=== PATIENT | female | born 1990 | race Caucasian/White ===

== ENCOUNTER 2020-05-29 14:26 | Emergency (ER) | payer OTHER ==
[2020-05-29] MEDS ORDERED: Rhogam IMMUNE GLOBULIN 1,500 UNIT/1 ML IM ONE (14:54)
[2020-05-29 14:55] VITALS: BP 124/77; PULSE 72; RESP 18; TEMP 98.5
--- NOTE | 2020-05-29 15:08 | ED ---
Female Urogenital HPI - General Chief complaint: Vaginal Bleeding Stated complaint: Poss Miscarriage Time Seen by Provider: 05/29/20 14:32 Source: patient Mode of arrival: ambulatory Limitations: no limitations - History of Present Illness Initial comments: Patient is a 29-year-old female presenting to emergency Department with complaints of vaginal bleeding and lower abdominal cramping that started yesterday. Patient believes she is approximately 6 weeks . She did have an ultrasound performed a couple weeks ago for dates. Her LABOR RELATIONS ANALYST is Dr. Garcia. Patient states the bleeding has been light, she does feel like she has passed a few small clots. She states the cramping was a little bit worse yesterday, less today. She is only having to wear a liner so the bleeding is not heavy. This is patient's first . She denies any fever or chills, no dysuria, no nausea or vomiting or diarrhea. She denies any chest pain or shortness of breath. She is no further complaints. - Related Data Allergies Allergy/AdvReac Type Severity Reaction Status Date / Time amoxicillin Allergy Rash/Hives Verified 05/29/20 14:32 cetirizine [From Zyrtec] Allergy Rash/Hives Verified 05/29/20 14:32 Penicillins Allergy Rash/Hives Verified 05/29/20 14:32 Sulfa (Sulfonamide Allergy Rash/Hives Verified 05/29/20 14:32 Antibiotics) Review of Systems ROS Statement: Those systems with pertinent positive or pertinent negative responses have been documented in the HPI. ROS Other: All systems not noted in ROS Statement are negative. Past Medical History Past Medical History: No Reported History History of Any Multi-Drug Resistant Organisms: None Reported Additional Past Surgical History / Comment(s): Brain sx Smoking Status: Never smoker Past Alcohol Use History: None Reported Past Drug Use History: None Reported General Exam - General Exam Comments Initial Comments: GENERAL: Patient is well-developed and well-nourished. Patient is nontoxic and in no acute distress. HEAD: Atraumatic, normocephalic. EYES: Pupils equal round and reactive to light, extraocular movements intact, sclera anicteric, conjunctiva are normal. Eyelids were unremarkable. ENT: TMs normal, nares patent, oropharynx clear without exudates. Moist mucous membranes. NECK: Normal range of motion, supple without lymphadenopathy or JVD. LUNGS: Unlabored respirations. Breath sounds clear to auscultation bilaterally and equal. No wheezes rales or rhonchi. HEART: Regular rate and rhythm without murmurs, rubs or gallops. ABDOMEN: Very mild lower abdominal discomfort, no other areas of pain. Soft, normoactive bowel sounds. No guarding, no rebound. No masses appreciated. MUSCULOSKELETAL: Normal extremities with adequate strength and normal range of motion, no pitting or edema. No clubbing or cyanosis. NEUROLOGICAL: Patient is alert and oriented x 3. Motor and sensory are also intact. Cranial nerves II through XII grossly intact. Symmetrical smile. Normal speech, normal gait. PSYCH: Normal mood, normal affect. SKIN: Warm, Dry, normal turgor, no rashes or lesions noted. Limitations: no limitations External exam: Present: normal external exam Speculum exam: Present: vaginal bleeding (Cervical os appears to be closed, there was a few small blood clots visible, no active bleeding/hemorrhaging). Absent: foreign body By manual exam: Present: normal by manual exam Course Vital Signs 05/29/20 14:29 Temperature 98.5 F Pulse Rate 72 Respiratory 18 Rate Blood Pressure 124/77 O2 Sat by Pulse 99 Oximetry Medical Decision Making - Medical Decision Making Patient is a 29-year-old female, proximally 6 weeks , presenting for vaginal bleeding and cramping that started yesterday. Bleeding is light. This is patient's first , LABOR RELATIONS ANALYST is Dr. Munoz. Labs are unremarkable, hCG Quant is 5600. Ultrasound today shows a single live IUP measuring 6 weeks, 1 day. Heart rate is 1:15, this does appear low but could be due to early gestational age. No complicating process seen at this time. Patient's blood type is O-, Rhogam was given today. Urine is normal, no signs of bacteria. She will have hCG retested in 48 hours. She does have an appointment in 2 days with her LABOR RELATIONS ANALYST. Patient is stable for discharge. Patient is in agreement with this plan of care. Return parameters were discussed with the patient and they verbalized understanding. Case discussed with Dr. Marquez. - Lab Data Result diagrams: 05/29/20 15:02 05/29/20 15:02 Lab Results 05/29/20 05/29/20 05/29/20 Range/Units 15:02 15:02 15:02 WBC 7.3 (3.8-10.6) k/uL RBC 4.43 (3.80-5.40) m/uL Hgb 13.6 (11.4-16.0) gm/dL Hct 39.4 (34.0-46.0) % MCV 88.8 (80.0-100.0) fL MCH 30.6 (25.0-35.0) pg MCHC 34.5 (31.0-37.0) g/dL RDW 12.2 (11.5-15.5) % Plt Count 212 (150-450) k/uL MPV 9.1 Neutrophils % 55 % Lymphocytes % 29 % Monocytes % 4 % Eosinophils % 9 % Basophils % 1 % Neutrophils # 4.0 (1.3-7.7) k/uL Lymphocytes # 2.2 (1.0-4.8) k/uL Monocytes # 0.3 (0-1.0) k/uL Eosinophils # 0.7 (0-0.7) k/uL Basophils # 0.1 (0-0.2) k/uL Sodium 138 (137-145) mmol/L Potassium 4.1 (3.5-5.1) mmol/L Chloride 102 (98-107) mmol/L Carbon Dioxide 26 (22-30) mmol/L Anion Gap 10 mmol/L BUN 7 (7-17) mg/dL Creatinine 0.56 (0.52-1.04) mg/dL Est GFR (CKD-EPI)AfAm >90 (>60 ml/min/1.73 sqM) Est GFR (CKD-EPI)NonAf >90 (>60 ml/min/1.73 sqM) Glucose 91 (74-99) mg/dL Calcium 9.3 (8.4-10.2) mg/dL Total Bilirubin 0.5 (0.2-1.3) mg/dL AST 25 (14-36) U/L ALT 16 (4-34) U/L Alkaline Phosphatase 41 (38-126) U/L Total Protein 7.2 (6.3-8.2) g/dL Albumin 4.3 (3.5-5.0) g/dL HCG, Quant 5606.2 mIU/mL Urine Color Light Yellow Urine Appearance Clear (Clear) Urine pH 7.0 (5.0-8.0) Ur Specific [place] 1.016 (1.001-1.035) Urine Protein Negative (Negative) Urine Glucose (UA) Negative (Negative) Urine Ketones Negative (Negative) Urine Blood Negative (Negative) Urine Nitrite Negative (Negative) Urine Bilirubin Negative (Negative) Urine Urobilinogen <2.0 (<2.0) mg/dL Ur Leukocyte Esterase Negative (Negative) Blood Type Blood Type Confirm Blood Type Recheck Bld Type Recheck Status Antibody Screen 05/29/20 05/29/20 Range/Units 15:02 15:05 WBC (3.8-10.6) k/uL RBC (3.80-5.40) m/uL Hgb (11.4-16.0) gm/dL Hct (34.0-46.0) % MCV (80.0-100.0) fL MCH (25.0-35.0) pg MCHC (31.0-37.0) g/dL RDW (11.5-15.5) % Plt Count (150-450) k/uL MPV Neutrophils % % Lymphocytes % % Monocytes % % Eosinophils % % Basophils % % Neutrophils # (1.3-7.7) k/uL Lymphocytes # (1.0-4.8) k/uL Monocytes # (0-1.0) k/uL Eosinophils # (0-0.7) k/uL Basophils # (0-0.2) k/uL Sodium (137-145) mmol/L Potassium (3.5-5.1) mmol/L Chloride (98-107) mmol/L Carbon Dioxide (22-30) mmol/L Anion Gap mmol/L BUN (7-17) mg/dL Creatinine (0.52-1.04) mg/dL Est GFR (CKD-EPI)AfAm (>60 ml/min/1.73 sqM) Est GFR (CKD-EPI)NonAf (>60 ml/min/1.73 sqM) Glucose (74-99) mg/dL Calcium (8.4-10.2) mg/dL Total Bilirubin (0.2-1.3) mg/dL AST (14-36) U/L ALT (4-34) U/L Alkaline Phosphatase (38-126) U/L Total Protein (6.3-8.2) g/dL Albumin (3.5-5.0) g/dL HCG, Quant mIU/mL Urine Color Urine Appearance (Clear) Urine pH (5.0-8.0) Ur Specific [place] (1.001-1.035) Urine Protein (Negative) Urine Glucose (UA) (Negative) Urine Ketones (Negative) Urine Blood (Negative) Urine Nitrite (Negative) Urine Bilirubin (Negative) Urine Urobilinogen (<2.0) mg/dL Ur Leukocyte Esterase (Negative) Blood Type O Negative Blood Type Confirm O Negative Blood Type Recheck No Previous Record Bld Type Recheck Status CABO Indicated Antibody Screen NEGATIVE Disposition Clinical Impression: Vaginal bleeding during Disposition: HOME SELF-CARE Condition: Stable Instructions (If sedation given, give patient instructions): Threatened Miscarriage (ED) Additional Instructions: Please return to the Emergency Department if symptoms worsen or any other concerns. Repeat beta hCG levels in 48 hours. Follow up with your LABOR RELATIONS ANALYST as discussed. Is patient prescribed a controlled substance at d/c from ED?: No Referrals: Nonstaff,Physician [Primary Care Provider] - 1-2 days
[2020-05-29 15:20] LABS: Basophils # (A) 0.1 k/uL (0-0.2); Basophils % (A) 1 %; Eosinophils # (A) 0.7 k/uL (0-0.7); Eosinophils % (A) 9 %; HCT 39.4 % (34.0-46.0); HGB 13.6 gm/dL (11.4-16.0); Lymphocytes # (A) 2.2 k/uL (1.0-4.8); Lymphocytes % (A) 29 %; MCH 30.6 pg (25.0-35.0); MCHC 34.5 g/dL (31.0-37.0); MCV 88.8 fL (80.0-100.0); Mean Platelet Volume 9.1; Monocytes # (A) 0.3 k/uL (0-1.0); Monocytes % (A) 4 %; Neutrophils % (A) 55 %; Platelet Count 212 k/uL (150-450); RBC 4.43 m/uL (3.80-5.40); RDW 12.2 % (11.5-15.5); WBC 7.3 k/uL (3.8-10.6)
[2020-05-29 15:29] LABS: ALT 16 U/L (4-34); AST 25 U/L (14-36); African American GFR (CKD) >90 (>60 ml/min/1.73 sqM); Albumin 4.3 g/dL (3.5-5.0); Alkaline Phosphatase 41 U/L (38-126); Anion Gap 10 mmol/L; Blood Urea Nitrogen 7 mg/dL (7-17); Calcium 9.3 mg/dL (8.4-10.2); Carbon Dioxide 26 mmol/L (22-30); Chloride 102 mmol/L (98-107); Glucose 91 mg/dL (74-99); Non-African American GFR(CKD) >90 (>60 ml/min/1.73 sqM); Potassium 4.1 mmol/L (3.5-5.1); Sodium 138 mmol/L (137-145); Total Bilirubin 0.5 mg/dL (0.2-1.3); Total Protein 7.2 g/dL (6.3-8.2)
[2020-05-29 15:46] LABS: HCG,Quantitative Serum 5606.2 mIU/mL
--- NOTE | 2020-05-29 16:03 | US ---
EXAMINATION TYPE: Transabdominal DATE OF EXAM: 05/29/2020 3:47 PM COMPARISON: NONE CLINICAL HISTORY: cramping, bleeding since yesterday. Spotting since yesterday. EXAM PERFORMED: Transvaginal (TV) and Transabdominal (TA) EXAM MEASUREMENTS: GESTATIONAL AGE / DATING Dates by LMP: (8 weeks/2 days) EDC: 01/06/2021 Dates by Current Scan for: (6 weeks/1 days) EDC: 01/21/2021 MATERNAL ANATOMY Uterus: 7.3 x 4.4 x 3.6 cm Right Ovary: 2.8 x 1.6 x 1.4 cm Left Ovary: 2.8 x 1.4 x 1.4 cm Post CDS / Adnexa: no free fluid, peristalsing fluid filled bowel seen Presence of free fluid: no Presence of corpus luteal cyst: no Presence of subchorionic bleed: no GESTATION / SURVEY CRL: 0.4 cm (6 weeks/1 days) MSD: seen, not measured Yolk Sac (normal less than 6mm): 1.1 mm Heart Rate: 115 bpm Rhythm: Normal IUP: Viable IUP Date of LMP: 04/01/2020, G1 Beta HcG (if available): Not available at this time Single live IUP measuring 6 weeks 1 day. Heart rate appears low, but could be due to early gestation al age. IMPRESSION: The ultrasound gestational age is 6 weeks and 1 day. No complicating process seen.
[2020-05-29 16:21] LABS: Appearance,Urine Clear (Clear); Bilirubin,Urine Negative (Negative); Blood,Urine Negative (Negative); Color,Urine Light Yellow; Glucose,Urine (UA) Negative (Negative); Ketones,Urine Negative (Negative); Leukocyte Esterase,Urine Negative (Negative); Nitrite,Urine Negative (Negative); Protein,Urine Negative (Negative); Specific Gravity,Urine 1.016 (1.001-1.035); Urobilinogen,Urine <2.0 mg/dL (<2.0)
== END 2020-05-29 16:39 | disposition home or self-care (01) ==
LOC: EC 14:26
DX: O46.91 Antepartum hemorrhage, unspecified, first trimester (principal); Z3A.08 8 weeks gestation of pregnancy; Z88.0 Allergy status to penicillin; Z88.2 Allergy status to sulfonamides; Z88.8 Allergy status to other drugs, medicaments and biological substances
CPT/HCPCS: 99284; 36415; 86900; 86901; 80053; 85025; 86850; 81003; 84702; 76801; 76817; J2791

== ENCOUNTER 2021-01-05 08:10 | Emergency (ER) | payer OTHER ==
--- NOTE | 2021-01-05 08:24 | ED ---
Fall HPI - General Chief Complaint: Fall Stated Complaint: IHS-slip & fall Time Seen by Provider: 01/05/21 08:14 Source: patient, RN notes reviewed Mode of arrival: ambulatory Limitations: no limitations - History of Present Illness Initial Comments: This a 30-year-old female presents emergency Department with chief complaint of slip and fall. Patient states that she was at work in which she states the nausea she was leaking she slipped on the concrete falling but has no complaints. Denies any head injury no loss conscious denies neck, back pain, hip pain, extremity pain she does admit that she is 25 weeks states that she didn't bathroom after the fall she's had no vaginal bleeding or vaginal discharge. Patient states that she is A0 and seen Dr. Garcia. Patient has no current abdominal pain. - Related Data Allergies Allergy/AdvReac Type Severity Reaction Status Date / Time amoxicillin Allergy Rash/Hives Verified 01/05/21 08:11 cetirizine [From Zyrtec] Allergy Rash/Hives Verified 01/05/21 08:11 Penicillins Allergy Rash/Hives Verified 01/05/21 08:11 Sulfa (Sulfonamide Allergy Rash/Hives Verified 01/05/21 08:11 Antibiotics) Review of Systems ROS Statement: Those systems with pertinent positive or pertinent negative responses have been documented in the HPI. ROS Other: All systems not noted in ROS Statement are negative. Past Medical History Past Medical History: No Reported History History of Any Multi-Drug Resistant Organisms: None Reported Additional Past Surgical History / Comment(s): Brain sx Smoking Status: Never smoker Past Alcohol Use History: None Reported Past Drug Use History: None Reported General Exam Limitations: no limitations General appearance: alert, in no apparent distress Head exam: Present: atraumatic, normocephalic, normal inspection Eye exam: Present: normal appearance, PERRL, EOMI. Absent: scleral icterus, conjunctival injection, periorbital swelling ENT exam: Present: normal exam, normal oropharynx, mucous membranes moist Neck exam: Present: normal inspection, full ROM. Absent: tenderness, meningismus, lymphadenopathy Respiratory exam: Present: normal lung sounds bilaterally. Absent: respiratory distress, wheezes, rales, rhonchi, stridor Cardiovascular Exam: Present: regular rate, normal rhythm, normal heart sounds. Absent: systolic murmur, diastolic murmur, rubs, gallop, clicks GI/Abdominal exam: Present: soft, normal bowel sounds, other ( heart tone 153). Absent: distended, tenderness, guarding, rebound, rigid Back exam: Present: full ROM. Absent: tenderness, CVA tenderness (R), CVA tenderness (L), paraspinal tenderness, vertebral tenderness Neurological exam: Present: alert, oriented X3, CN II-XII intact, reflexes normal. Absent: motor sensory deficit Skin exam: Present: warm, dry, intact, normal color. Absent: rash Course Vital Signs 01/05/21 01/05/21 08:11 09:25 Temperature 98.3 F 98.2 F Pulse Rate 84 83 Respiratory 18 17 Rate Blood Pressure 109/72 101/55 O2 Sat by Pulse 100 97 Oximetry Disposition Clinical Impression: Fall from slipping Disposition: HOME SELF-CARE Condition: Stable Additional Instructions: Please return to the Emergency Department if symptoms worsen or any other concerns. Is patient prescribed a controlled substance at d/c from ED?: No Referrals: Montserrat Cedeño DO [Primary Care Provider] - 1-2 days Time of Disposition: 08:24
[2021-01-05 09:26] VITALS: BP 101/55; PULSE 83; RESP 17; TEMP 98.2
== END 2021-01-05 09:26 | disposition home or self-care (01) ==
LOC: EC 08:10
DX: Z04.3 Encounter for examination and observation following other accident (principal); W01.0XXA Fall on same level from slipping, tripping and stumbling without subsequent striking against object, initial encounter
CPT/HCPCS: 99283

== ENCOUNTER 2022-09-12 06:00 | Inpatient (IN) | payer BC, OTHER ==
[2022-09-12] MEDS ORDERED: miSOPROStoL 200 MCG TAB PO PRN (06:27)
[2022-09-12] MEDS ORDERED: CARBOPROST TROMETHAMINE 250 MCG/ML 1 ML AMP IM PRN (06:27)
[2022-09-12] MEDS ORDERED: TERBUTALINE 1 MG/ML VIAL SQ PRN (06:27)
[2022-09-12] MEDS ORDERED: LIDOCAINE 0.5% (PF) 5 MG/ML (50 ML SDV) SQ PRN (06:27)
[2022-09-12] MEDS ORDERED: METHYLERGONOVINE 0.2 MG/ML 1 ML AMP IM PRN (06:27)
[2022-09-12] MEDS ORDERED: OXYTOCIN 10 UNIT/ML 1 ML VIAL IM PRN (06:27)
[2022-09-12] MEDS ORDERED: TRANEXAMIC ACID IN NACL,ISO-OS 1,000 MG in EMPTY BAG 1 BAG IV PRN (06:27)
[2022-09-12] MEDS ORDERED: OXYTOCIN 30 UNITS/500 ML NS 30 UNIT in SALINE 1 500ML.BAG IV SCH ×2 (06:30→19:00)
[2022-09-12 06:49] LABS: Basophils % (A) 1 %; Eosinophils # (A) 0.4 k/uL (0-0.7); Eosinophils % (A) 5 %; HCT 30.7 % (34.0-46.0); HGB 10.3 gm/dL (11.4-16.0); Lymphocytes # (A) 2.1 k/uL (1.0-4.8); Lymphocytes % (A) 29 %; MCH 28.5 pg (25.0-35.0); MCHC 33.5 g/dL (31.0-37.0); MCV 85.1 fL (80.0-100.0); Mean Platelet Volume 13.7; Monocytes # (A) 0.4 k/uL (0-1.0); Monocytes % (A) 5 %; Neutrophils # (A) 4.2 k/uL (1.3-7.7); Neutrophils % (A) 57 %; Platelet Count 141 k/uL (150-450); RBC 3.61 m/uL (3.80-5.40); RDW 14.2 % (11.5-15.5); WBC 7.3 k/uL (3.8-10.6)
[2022-09-12] MEDS: LACTATED RINGERS 1,000 ML IV SCH ×3 (06:50→16:28)
[2022-09-12 09:48] LABS: Basophils % (A) 1 %; Eosinophils # (A) 0.4 k/uL (0-0.7); Eosinophils % (A) 4 %; HCT 32.1 % (34.0-46.0); HGB 10.8 gm/dL (11.4-16.0); Lymphocytes # (A) 1.9 k/uL (1.0-4.8); Lymphocytes % (A) 23 %; MCH 28.9 pg (25.0-35.0); MCHC 33.6 g/dL (31.0-37.0); Mean Platelet Volume 15.8; Monocytes # (A) 0.4 k/uL (0-1.0); Monocytes % (A) 5 %; Neutrophils # (A) 5.4 k/uL (1.3-7.7); Neutrophils % (A) 64 %; Platelet Count 134 k/uL (150-450); RBC 3.73 m/uL (3.80-5.40); RDW 14.2 % (11.5-15.5); WBC 8.4 k/uL (3.8-10.6)
[2022-09-12 10:19] LABS: ALT 16 U/L (4-34); AST 30 U/L (14-36); African American GFR (CKD) >90 (>60 ml/min/1.73 sqM); Blood Urea Nitrogen 9 mg/dL (7-17); LDH 215 U/L (120-246); Non-African American GFR(CKD) >90 (>60 ml/min/1.73 sqM); Uric Acid 5.1 mg/dL (3.7-7.4)
[2022-09-12 11:17] LABS: Large Platelets Present
[2022-09-12 11:47] LABS: Appearance,Urine Turbid (Clear); Bacteria,Urine Many /hpf; Bilirubin,Urine Negative (Negative); Blood,Urine Small (Negative); Color,Urine Yellow; Glucose,Urine (UA) Negative (Negative); Ketones,Urine Negative (Negative); Leukocyte Esterase,Urine Large (Negative); Mucus,Urine Many /hpf; Nitrite,Urine Negative (Negative); Protein,Urine 2+ (Negative); RBC,Urine 108 /hpf (0-5); Specific Gravity,Urine 1.028 (1.001-1.035); Squamous Epithelial Cell,Urine 87 /hpf (0-4); WBC,Urine >182 /hpf (0-5)
[2022-09-12] MEDS ORDERED: fentaNYL (PF) 50 MCG/ML 5 ML AMP ONE (12:34)
[2022-09-12] MEDS ORDERED: ROPIVACAINE 5 MG/ML 20 ML AMPULE ONE (12:34)
[2022-09-12] MEDS ORDERED: SODIUM CHLORIDE 0.9% 100 ML BAG ONE (12:34)
[2022-09-12] MEDS ORDERED: ZOLPIDEM 5 MG TAB PO PRN (18:52)
[2022-09-12] MEDS ORDERED: LANOLIN CREAM 5 GM TUBE TOPICAL PRN (18:52)
[2022-09-12] MEDS ORDERED: BENZOCAINE/MENTHOL SPRAY 1 GM/SPRAY AEROSOL TOPICAL PRN (18:52)
[2022-09-12] MEDS ORDERED: diphenhydrAMINE 50 MG CAP PO PRN (18:52)
[2022-09-12] MEDS ORDERED: SIMETHICONE 80 MG CHEWABLE PO PRN (18:52)
[2022-09-12] MEDS ORDERED: diphenhydrAMINE 25 MG CAP PO PRN (18:52)
[2022-09-12] MEDS ORDERED: diphenhydrAMINE 50 MG/ML 1 ML VIAL IVP PRN ×2 (18:52)
[2022-09-12] MEDS ORDERED: HYDROCORTISONE 2.5% RECTAL CREAM 30 GM TUBE RECTAL PRN (18:52)
--- NOTE | 2022-09-12 18:58 | P.PROBDLV ---
Vaginal Delivery Note - . Vaginal Delivery Note: this is a 31-year-old that presented to labor and delivery at 39-2/7 weeks for scheduled induction of labor. Patient had a prior history of retained placenta, hemorrhage after her first delivery. Patient has been receiving routine care with myself which has been essentially uncomplicated. Given patient's prior delivery and questionable placenta accreta patient had an MFM consult. No further recommendations were made per MFM. MFM consult on chart. Patient was admitted to labor and delivery and Pitocin induction of labor was begun. Patient underwent amniotomy and clear fluid was obtained. Patient progressed through labor eventually becoming uncomfortable requesting epidural placement. Epidural was placed without difficulty by the anesthesia department. Patient made slow progress for complete. Once patient was deemed to be completely dilated she was placed in a modified lithotomy position and began pushing. With excellent maternal effort she brought the baby down to a presentation. With additional pushes the head followed by the anterior/posterior shoulder and body were delivered. Spontaneous cry was noted at . After two-minute delayed the umbilical cord was doubly clamped and cut and the was handed to the maternal abdomen. Cord blood was then taken.The placenta was delivered spontaneously intact with three-vessel cord being noted. The placenta was inspected and noted to be completely intact with no missing codelyones. uterus is noted be firm and below the umbilicus. On inspection the patient's vaginal vault a first-degree perineal laceration was appreciated and repaired with a single box stitch of 4-0 chromic. all counts were noted be correct 2 at the delivery. Estimated blood loss 100 mL. Patient and infant tolerated delivery well and are resting comfortably.
--- NOTE | 2022-09-12 18:59 | P.HPOB ---
History of Present Illness H&P Date: 09/12/22 Chief Complaint: IUP @ 39 2/7 weeks This is a 31 yo at 39 2/7 weeks that presents for induction of labor. She has been receiving routine care with myself and has been essentially uncomplicated. 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 Patient did see maternal medicine in the beginning the giving this prior history. Workup with maternal medicine was negative. Consult on record. This morning patient notes good movement, denies contractions vaginal bleeding or loss of fluid. On bloodwork this patient has a blood type of O-, rubella status immune, hepatitis B surface engine negative, HIV negative, RPR is nonreactive, group beta strep cultures negative. Review of Systems Constitutional: Denies chills, Denies fatigue, Denies fever Ears, nose, mouth and throat: Denies headache Cardiovascular: Denies leg edema Respiratory: Denies dyspnea Gastrointestinal: Denies constipation, Denies diarrhea, Denies nausea, Denies vomiting Genitourinary: Reports Past Medical History Past Medical History: No Reported History, GERD/Reflux Additional Past Medical History / Comment(s): placenta acreda, PPH, and blood transfusion with previous pregancy. History of Any Multi-Drug Resistant Organisms: None Reported Additional Past Surgical History / Comment(s): Brain sx Past Anesthesia/Blood Transfusion Reactions: No Reported Reaction Past Psychological History: Anxiety, Depression Smoking Status: Never smoker Past Alcohol Use History: None Reported Past Drug Use History: None Reported - Past Family History Father History Unknown: Yes Family Medical History: Congestive Heart Failure (CHF), Coronary Artery Disease (CAD), Diabetes Mellitus, Hypertension Medications and Allergies Home Medications Medication Instructions Recorded Confirmed Type Aspirin [Adult Low Dose Aspirin EC] 1 tab PO DAILY 09/12/22 09/12/22 History Loratadine [Claritin] 1 tab PO DAILY 09/12/22 09/12/22 History Omeprazole [PriLOSEC] 1 tab PO DAILY 09/12/22 09/12/22 History Vit No.179/Iron/Folic 1 tab PO DAILY 09/12/22 09/12/22 History [ Tablet] Allergies Allergy/AdvReac Type Severity Reaction Status Date / Time amoxicillin Allergy Rash/Hives Verified 01/05/21 08:11 cetirizine [From Zyrtec] Allergy Rash/Hives Verified 01/05/21 08:11 Penicillins Allergy Rash/Hives Verified 01/05/21 08:11 Sulfa (Sulfonamide Allergy Rash/Hives Verified 01/05/21 08:11 Antibiotics) Exam Osteopathic Statement: *. No significant issues noted on an osteopathic structural exam other than those noted in the History and Physical/Consult. Vital Signs Temp Pulse Resp BP Pulse Ox 09/12/22 06:23 98.1 F 92 18 138/94 98 Intake and Output 09/11/22 09/12/22 09/12/22 22:59 06:59 14:59 Other: Weight 74.843 kg Targeted physical exam is performed in this date and bonding supervisor a well-nourished well-developed female in no acute distress, breathing is noted nonlabored, heart has a regular rate and rhythm, abdomen is gravid, on heart tones are noted to be category 1 and she is pat every 3 minutes. On cervical exam she is 2-3/50/-2 station amniotomy is performed and clear fluid was obtained. Results Result Diagrams: 09/12/22 09:35 09/12/22 09:35 Abnormal Lab Results - Last 24 Hours (Table) 09/12/22 Range/Units 06:32 RBC 3.61 L (3.80-5.40) m/uL Hgb 10.3 L (11.4-16.0) gm/dL Hct 30.7 L (34.0-46.0) % Plt Count 141 L (150-450) k/uL Assessment and Plan (1) Term Current Visit: Yes Status: Acute Code(s): Z34.90 - ENCNTR FOR SUPRVSN OF NORMAL , UNSP, UNSP TRIMESTER SNOMED Code(s): 39774729 Plan: 31-year-old at 39-2/7 weeks is admitted to labor and delivery for induction of labor. Patient is admitted and Pitocin induction of labor is begun per hospital protocol. Amniotomy is performed and clear fluid was obtained. Options for analgesia are discussed including Stadol, nitrous, epidural. Patient will consider. Anticipate spontaneous vaginal delivery later today.
[2022-09-12 20:01] VITALS: RESP 16
[2022-09-12] MEDS: IBUPROFEN 600 MG TAB PO SCH (20:08)
[2022-09-12] MEDS: SENNOSIDES-DOCUSATE SODIUM 1 EACH TAB PO SCH (20:09)
[2022-09-13] MEDS: IBUPROFEN 600 MG TAB PO SCH ×3 (02:17→17:04)
[2022-09-13] MEDS ORDERED: Rhogam IMMUNE GLOBULIN 1,500 UNIT/1 ML IM ONE (05:05)
[2022-09-13 05:48] LABS: Basophils % (A) 0 %; Eosinophils # (A) 0.4 k/uL (0-0.7); Eosinophils % (A) 3 %; HCT 29.5 % (34.0-46.0); HGB 9.6 gm/dL (11.4-16.0); Lymphocytes # (A) 2.5 k/uL (1.0-4.8); Lymphocytes % (A) 23 %; MCH 27.7 pg (25.0-35.0); MCHC 32.7 g/dL (31.0-37.0); Monocytes # (A) 0.4 k/uL (0-1.0); Monocytes % (A) 4 %; Neutrophils # (A) 7.2 k/uL (1.3-7.7); Neutrophils % (A) 67 %; Platelet Count 113 k/uL (150-450); RBC 3.48 m/uL (3.80-5.40); RDW 14.6 % (11.5-15.5); WBC 10.8 k/uL (3.8-10.6)
[2022-09-13] MEDS: ACETAMINOPHEN TAB 325 MG TAB PO PRN ×2 (07:54→17:02)
[2022-09-13] MEDS: SENNOSIDES-DOCUSATE SODIUM 1 EACH TAB PO SCH ×2 (07:55→17:02)
--- NOTE | 2022-09-13 08:48 | P.PNOBGVD ---
Subjective - Subjective Principal diagnosis: day #1 Interval history: Patient is doing well . She is ambulating and voiding without difficulty. She states her lochia is moderate, she is breast-feeding without difficulty. She denies concerns. Patient reports: Reports appetite normal, Reports voiding normally, Reports pain well controlled, Reports ambulating normally : doing well, nursing well Objective - Latest Vital Signs Latest vital signs: Vital Signs Temp Pulse Resp BP Pulse Ox 09/13/22 07:46 98 F 72 16 132/78 09/13/22 04:00 97.8 F 72 16 152/90 100 09/13/22 00:00 96.4 F L 74 16 131/74 09/12/22 20:51 68 16 140/85 09/12/22 20:21 75 16 149/93 09/12/22 19:51 65 16 144/88 09/12/22 19:36 75 16 139/93 09/12/22 19:21 75 16 147/99 09/12/22 19:06 75 16 147/96 09/12/22 18:51 98.4 F 94 18 154/92 Intake and Output 09/12/22 09/13/22 09/13/22 22:59 06:59 14:59 Intake Total 333 Balance 333 Intake: Intake, IV Titration 333 Amount Oxytocin 30 Units/500 ml 333 Ns 30 unit In Saline 1 500ml.bag @ Per Protocol IV .Q0M [facility] Rx#:[id number] Other: # Voids 1 1 - Exam Extremities: Present: normal Abdomen: Present: normal appearance Uterus: Present: normal, firm - Labs Labs: Abnormal Lab Results - Last 24 Hours (Table) 09/12/22 09/12/22 09/12/22 Range/Units 09:35 09:35 11:04 WBC (3.8-10.6) k/uL RBC 3.73 L (3.80-5.40) m/uL Hgb 10.8 L (11.4-16.0) gm/dL Hct 32.1 L (34.0-46.0) % Plt Count 134 L (150-450) k/uL Creatinine 0.51 L (0.52-1.04) mg/dL Urine Appearance Turbid H (Clear) Urine Protein 2+ H (Negative) Urine Blood Small H (Negative) Ur Leukocyte Esterase Large H (Negative) Urine RBC 108 H (0-5) /hpf Urine WBC >182 H (0-5) /hpf Urine WBC Clumps Many H (None) /hpf Ur Squamous Epith Cells 87 H (0-4) /hpf Urine Bacteria Many H (None) /hpf Urine Mucus Many H (None) /hpf 09/13/22 Range/Units 05:35 WBC 10.8 H (3.8-10.6) k/uL RBC 3.48 L (3.80-5.40) m/uL Hgb 9.6 L (11.4-16.0) gm/dL Hct 29.5 L (34.0-46.0) % Plt Count 113 L (150-450) k/uL Creatinine (0.52-1.04) mg/dL Urine Appearance (Clear) Urine Protein (Negative) Urine Blood (Negative) Ur Leukocyte Esterase (Negative) Urine RBC (0-5) /hpf Urine WBC (0-5) /hpf Urine WBC Clumps (None) /hpf Ur Squamous Epith Cells (0-4) /hpf Urine Bacteria (None) /hpf Urine Mucus (None) /hpf Assessment and Plan (1) Term Current Visit: Yes Status: Acute Code(s): Z34.90 - ENCNTR FOR SUPRVSN OF NORMAL , UNSP, UNSP TRIMESTER SNOMED Code(s): 30327537 (2) Status post vaginal delivery Current Visit: Yes Status: Acute Code(s): WLN9199 - SNOMED Code(s): 200016718 Plan: Patient is doing well . She does desire discharge home at 24 hours if is discharged as well. She does desire circumcision prior to discharge. We'll continue routine care today and consider discharge this evening.
[2022-09-13] MEDS ORDERED: PRENATAL VIT-IRON-FOLIC ACID 1 EACH TABLET PO SCH (09:00)
--- NOTE | 2022-09-13 12:58 | P.DS ---
Providers Date of admission: 09/12/22 06:08 Expected date of discharge: 09/13/22 Attending physician: Jennifer Woodward Primary care physician: Stated None - Discharge Diagnosis(es) (1) Term Current Visit: Yes Status: Acute (2) Status post vaginal delivery Current Visit: Yes Status: Acute Hospital Course: This is a 31-year-old G3 now P2 012 that presented to labor and delivery at 39- 2/7 weeks for scheduled induction of labor. Patient had a prior history of a retained placenta questionable accreta and hemorrhage with her first delivery. Patient did see maternal medicine regarding these concerns and prior concerns with care. MFM consult is on chart. No further recommendations were made per MFM. Patient was admitted and Pitocin induction of labor was begun. Patient underwent amniotomy clear fluid was obtained. Patient progressed through labor eventually becoming uncomfortable and did request epidural placement. Epidural was placed without difficulty by the anesthesia department. Patient made progress for complete began pushing and had a normal spontaneous vaginal delivery of a viable male at 1836, weight of 7 lbs. 4 oz. Patient did sustain a first-degree perineal laceration was was repaired with a box stitch of 4-0 chromic. Patient has done well . On this day #1 she is ambulating and voiding without difficulty. She is tolerating a regular diet without nausea or vomiting. She states her pain is well-controlled. She is breast-feeding. She notes her lochia to be minimal to moderate. She would like discharge home at 24 hours. Patient Condition at Discharge: Good Plan - Discharge Summary New Discharge Prescriptions: No Action Omeprazole [PriLOSEC] 1 tab PO DAILY Vit No.179/Iron/Folic [ Tablet] 1 tab PO DAILY Loratadine [Claritin] 1 tab PO DAILY Aspirin [Adult Low Dose Aspirin EC] 1 tab PO DAILY Discharge Medication List Aspirin [Adult Low Dose Aspirin EC] 1 tab PO DAILY 09/12/22 [History] Loratadine [Claritin] 1 tab PO DAILY 09/12/22 [History] Omeprazole [PriLOSEC] 1 tab PO DAILY 09/12/22 [History] Vit No.179/Iron/Folic [ Tablet] 1 tab PO DAILY 09/12/22 [History] Follow up Appointment(s)/Referral(s): Jennifer Woodward DO [Doctor of Osteopathic Medicine] - 1 Week Patient Instructions/Handouts: Vaginal Delivery (GEN), Vaginal Delivery (DC) Activity/Diet/Wound Care/Special Instructions: No tub baths or intercourse until 6 weeks . Patient is counseled on blood pressure concerns given labile blood pressures in labor. Negative preeclampsia labs were noted. Patient is to return to the office for a blood pressure check in 1 week.
[2022-09-13 16:41] VITALS: PULSE 83; TEMP 97.8
[2022-09-13 20:38] VITALS: BP 139/91
== END 2022-09-13 20:40 | disposition home or self-care (01) | DRG 807 ==
LOC: 4FBP 06:08
PROVIDERS: ADMIT Obstetrics & Gynecology Obstetrics; ATTEND Obstetrics & Gynecology Obstetrics
PROC: 10E0XZZ Delivery of Products of Conception, External Approach (ICD-10-PCS; principal; 2022-09-12)
PROC: 0HQ9XZZ Repair Perineum Skin, External Approach (ICD-10-PCS; 2022-09-12)
PROC: 3E033VJ Introduction of Other Hormone into Peripheral Vein, Percutaneous Approach (ICD-10-PCS; 2022-09-12)
PROC: 10907ZC Drainage of Amniotic Fluid, Therapeutic from Products of Conception, Via Natural or Artificial Opening (ICD-10-PCS; 2022-09-12)
DX: O70.0 First degree perineal laceration during delivery (principal); Z37.0 Single live birth; O99.344 Other mental disorders complicating childbirth; F32.A Depression, unspecified; F41.9 Anxiety disorder, unspecified; Z3A.39 39 weeks gestation of pregnancy; Z79.82 Long term (current) use of aspirin; Z88.1 Allergy status to other antibiotic agents; Z88.0 Allergy status to penicillin; Z88.5 Allergy status to narcotic agent; Z88.8 Allergy status to other drugs, medicaments and biological substances; Z88.2 Allergy status to sulfonamides; Z87.59 Personal history of other complications of pregnancy, childbirth and the puerperium
CPT/HCPCS: 81001; 82565; 83615; 84450; 84460; 84520; 84550; 85025; 85461; 86850; 86900; 86901